=== PATIENT | male | born 1985 | race Caucasian/White ===

== ENCOUNTER 2018-07-14 07:35 | Emergency (ER) | payer BC ==
[~2018-07-14] VITALS: Ht 170.2 cm; Wt 40.8 kg
--- NOTE | 2018-07-14 07:40 | NUR ---
Placed in room 3 . Placed on [employer], blood pressure machine and pulse oximeter. To gown for exam. Side rails up.
[2018-07-14 07:46] VITALS: BP_SYST 149
--- NOTE | 2018-07-14 08:00 | NUR ---
Pt C/O dizziness x 4 days and chest pain and sob since 1999 last night. Pt states pain comes and goes, 8/, nonradiating, sharp pain. The chest pain came back at 0600 this morning which is when he decided to seek medical attention. Currently vitals are stable, will continue to monitor.
[2018-07-14 08:12] LABS: BASOPHILS # (AUTO) 0.1 K/uL (0.0-0.2); BASOPHILS % (AUTO) 1.3 % (0.0-2.0); EOSINOPHILS # (AUTO) 0.1 K/uL (0.0-0.4); EOSINOPHILS % (AUTO) 1.7 % (0.0-4.0); HEMATOCRIT 53.6 % (36-54); HEMOGLOBIN 17.9 g/dL (14.0-18.0); LYMPHOCYTES # (AUTO) 1.6 K/uL (1.0-5.5); LYMPHOCYTES % (AUTO) 25.9 % (20.5-51.5); MEAN CORPUSCULAR HEMOGLOBIN 31 pg (27-31); MEAN CORPUSCULAR HGB CONC 33 % (32-36); MEAN CORPUSCULAR VOLUME 92 fL (79.0-98.0); MONOCYTES # (AUTO) 0.4 K/uL (0.0-1.0); MONOCYTES % (AUTO) 6.1 % (1.7-9.3); PLATELET COUNT (AUTO) 300 K/uL (130-430); RED BLOOD CELL COUNT(AUTO) 5.81 MIL/uL (4.2-6.2); RED CELL DISTRIBUTION WIDTH 12.3 % (9.0-15.0); WHITE BLOOD COUNT (AUTO) 6.2 K/uL (4.8-10.8)
--- NOTE | 2018-07-14 08:14 | NUR ---
Radiology at bedside
[2018-07-14 08:20] LABS: CALCIUM 9.6 mg/dL (8.4-11.0); CREATININE 0.79 mg/dL (0.55-1.30); POTASSIUM 4.2 mmol/L (3.5-5.1)
[2018-07-14 08:25] LABS: ALBUMIN 4.5 g/dL (3.4-4.8); TOTAL BILIRUBIN 0.5 mg/dL (0.0-1.0)
--- NOTE | 2018-07-14 08:34 | NUR ---
ER Dr. Winters at bedside examining patient.
--- NOTE | 2018-07-14 09:01 | NUR ---
Pt laying quietly in bed denies any chest pain or shortness of breath at this time. Will continue to monitor.
--- NOTE | 2018-07-14 10:12 | NUR ---
Dr. Winters at bedside speaking with pt and family.
[2018-07-14 10:15] VITALS: BP_SYST 125
--- NOTE | 2018-07-14 10:15 | NUR ---
Patient given written and verbal discharge instructions and verbalizes understanding. ER MD discussed with patient the results and treatment provided. Patient in stable condition. ID arm band removed. IV catheter removed intact and dressing applied, no active bleeding. Rx of Antivert given. Patient educated on pain management and to follow up with PMD. Pain Scale 0/10 upon discharge . Opportunity for questions provided and answered. Medication side effect fact sheet provided.
== END 2018-07-14 10:15 | disposition home or self-care (01) ==
LOC: SED 07:35
DX: H81.10 Benign paroxysmal vertigo, unspecified ear (principal); R07.89 Other chest pain
CPT/HCPCS: 36415; 71045; 80053; 83880; 84484; 85025; 85379; 93005; 99285